=== PATIENT | female | born 1975 | race Caucasian/White ===

== ENCOUNTER 2022-05-18 12:21 | Observation (INO) ==
[~2022-05-18 12:21] MED LIST: DECADRON INJ ONE; KETAMINE HCL ONE; NAROPIN 0.75% EPI ONE; PRECEDEX INJ VIAL IVP ONE; VERSED ONE
[2022-05-18] MEDS ORDERED: NS 100 ML IV 100 ML ONE (12:33)
[2022-05-18] MEDS ORDERED: NS 1,000 ML IV 1,000 ML ONE ×4 (12:33→18:01)
[2022-05-18] MEDS ORDERED: BYFAVO INJ IVP ONE (12:35)
[2022-05-18] MEDS ORDERED: DUONEB 0.5 MG/3 MG (3 mL) NEB ONE (12:43)
[2022-05-18 12:55] VITALS: BMI 33.2
[2022-05-18] MEDS ORDERED: ANCEF VIAL 1 GRAM ONE (13:15)
[2022-05-18] MEDS ORDERED: MARCAINE 0.5% ONE (13:25)
[2022-05-18] MEDS ORDERED: ROBINUL ONE (13:25)
[2022-05-18] MEDS ORDERED: PEPCID 20 MG VIAL ONE (13:25)
[2022-05-18] MEDS ORDERED: NAROPIN 0.75% EPI ONE (13:25)
[2022-05-18] MEDS ORDERED: DIPRIVAN VIAL 20 ML ONE (13:25)
[2022-05-18] MEDS ORDERED: ZOFRAN INJ 4 MG VIAL ONE ×2 (13:25→16:45)
[2022-05-18] MEDS ORDERED: MAGNESIUM SULFATE 50% INJ VIAL ONE (13:26)
[2022-05-18] MEDS ORDERED: KETAMINE 50 MG/5 ML-NACL SYRNG ONE (13:26)
[2022-05-18] MEDS ORDERED: OFIRMEV IV 1000 MG VIAL 1,000 MG/100 ML VIAL IV ONE (13:26)
[2022-05-18] MEDS ORDERED: DILAUDID INJ IVP PRN (13:46)
[2022-05-18] MEDS ORDERED: BENADRYL INJ 50 MG VIAL IVP PRN (13:46)
[2022-05-18] MEDS ORDERED: ZOFRAN INJ 4 MG VIAL IVP PRN (13:46)
[2022-05-18] MEDS ORDERED: REGLAN INJ 10 MG VIAL IVP PRN (13:46)
[2022-05-18] MEDS ORDERED: BARHEMSYS INJ IVP PRN (13:46)
[2022-05-18] MEDS ORDERED: ULTANE GAS IN ONE (14:51)
[2022-05-18] MEDS ORDERED: BETADINE SOLN ONE (15:05)
[2022-05-18] MEDS ORDERED: TOBRAMYCIN SULFATE ONE (15:23)
[2022-05-18] MEDS ORDERED: VANCOMYCIN HCL ONE (15:23)
[2022-05-18] MEDS ORDERED: TORADOL 30 MG VIAL ONE (16:47)
[2022-05-18] MEDS ORDERED: TYLENOL 325 MG TAB PO PRN (18:14)
[2022-05-18] MEDS ORDERED: NovoLIN R (or HumuLIN R) SC PRN (18:17)
[2022-05-18] MEDS ORDERED: NORCO 10/325 TAB PO PRN (18:17)
--- NOTE | 2022-05-18 18:19 | EKG ---
Test Reason : HYPOTENSION Blood Pressure : */* mmHG Vent. Rate : 84 BPM Atrial Rate : 84 BPM P-R Int : 130 ms QRS Dur : 76 ms QT Int : 424 ms P-R-T Axes : 57 63 42 degrees QTc Int : 501 ms Normal sinus rhythm Low voltage QRS Prolonged QT Abnormal ECG When compared with ECG of 20-MAR-2022 08:58, premature ventricular complexes are no longer present Criteria for Anterior infarct are no longer present T wave inversion no longer evident in Inferior leads T wave inversion no longer evident in Anterior leads QT has lengthened Confirmed by Chaka Garcia ([id number]) on 05/19/2022 3:53:41 PM Referred By: Confirmed By: Chaka Garcia
[2022-05-18 18:25] LABS: HEMATOCRIT 33.5 % (36.0-47.0)
[2022-05-18] MEDS ORDERED: PriLOSEC PO SCH (19:00)
[2022-05-18] MEDS ORDERED: SNACK - Diabetic Appropriate PO SCH (20:00)
[2022-05-18] MEDS: GLUCOPHAGE PO SCH (20:24)
[2022-05-18] MEDS ORDERED: COLACE CAP 100 MG PO SCH (21:00)
[2022-05-18] MEDS ORDERED: LIPITOR TAB 10 MG PO SCH (21:00)
[2022-05-18] MEDS ORDERED: NEURONTIN CAP 300 MG PO SCH (21:00)
[2022-05-18] MEDS: BENTYL CAP 10 MG PO SCH (21:13)
[2022-05-18] MEDS: CLEOCIN 300 MG IV PREMIX 300 MG/50 ML BAG IV SCH (21:13)
[2022-05-19 05:17] LABS: BLOOD UREA NITROGEN 8 mg/dL (7-18); CALCIUM 7.9 mg/dL (8.5-10.1); CARBON DIOXIDE 21.8 mmol/L (21-32); CHLORIDE 106 mmol/L (98-107); COR NA(FOR HYPERGLY) 138 mmol/L (136-145); CREATININE 0.64 mg/dL (0.55-1.02); SODIUM 137 mmol/L (136-145); eGFR NON BLACK RACES > 60 (>60)
[2022-05-19] MEDS: CLEOCIN 300 MG IV PREMIX 300 MG/50 ML BAG IV SCH (05:18)
[2022-05-19] MEDS: BENTYL CAP 10 MG PO SCH (05:18)
--- NOTE | 2022-05-19 08:01 | NOTE.SOAP ---
Soap Note Note for Day of Date of Exam: 05/19/22 Subjective Data Subjective Data: pt seen bedside resting comfortably. block still working. unable to move toes or feel them. BP stable and has not had signifincant hypotension through night. pain currently controlled with block Objective Data Objective Data: dressing CDI on ankle, no strikethrough, did not take it down. no motor or sensory to toes. no calf pain. Assessment Assessment: 46 F POD #1 from hindfoot fusion admitted for hypotension. Plan Plan: D/C to home today. rx for norco on chart ASA for DVT prophylaxis at home and lovenox in hospital. dressing to stay on and will change in office next week. she will remain NWB and doesn't need any appliances at home. discussed findings intra op with patient. bedside this am. discussed continued smoking cessation and ramifications of this on healing and her high risk for limb loss. she will follow up with me in [place] next week. D/c later this am once block has worn off and if ok with medicine.
[2022-05-19] MEDS ORDERED: PROTONIX TAB 40 MG PO SCH (09:00)
[2022-05-19] MEDS ORDERED: DIABETA PO SCH (09:00)
[2022-05-19] MEDS ORDERED: LOVENOX INJ 40 MG SYR SC SCH (09:00)
[2022-05-19] MEDS ORDERED: ASPIRIN PO SCH (09:00)
[2022-05-19] MEDS ORDERED: LOVASTATIN 10 MG PO SCH (09:00)
[2022-05-19] MEDS ORDERED: ZOFRAN TAB 4 MG PO PRN (09:22)
[2022-05-19] MEDS ORDERED: ZOFRAN TAB 4 MG ONE (09:28)
[2022-05-19] MEDS: GLUCOPHAGE PO SCH (09:32)
--- NOTE | 2022-05-19 09:45 | DR.SSS ---
SHORT STAY SUMMARY Admission Date Date of Admission: 05/18/22 Discharge Date Discharge Date: 05/19/22 Admission Diagnoses Admission Diagnoses: Hypotension Discharge Diagnoses Discharge Diagnoses: Hypotension Chief Complaint Chief Complaint: Hypotension History of Present Illness History of Present Illness: Pt is a 46 year old female admitted for hypotension after s/p hindfoot fusion for continued observation. Pt received IVF and blood pressure stabilized. She is stable for discharge and has rx and discharge instructions provided by podiatry. Pt to follow up with podiatry and pcp in 1 week. Past Medical History Past Medical History: Anxiety, Depression, Diabetes and GERD Past Surgical History Surgical History: Appendectomy, Cholecystectomy, Hysterectomy and Joint Replacement Allergies Allergies Allergy/AdvReac Type Severity Reaction Status Date / Time mushroom Allergy Unknown Verified 05/18/22 12:44 zinc oxide Allergy Unknown Verified 05/18/22 12:44 amoxicillin [From Augmentin] AdvReac Intermediate RASH Verified 05/18/22 12:44 clavulanic acid AdvReac Intermediate RASH Verified 05/18/22 12:44 [From Augmentin] acetaminophen [From Vicodin] AdvReac Mild RASH Verified 05/18/22 12:44 hydrocodone [From Vicodin] AdvReac Mild RASH Verified 05/18/22 12:44 sucralfate [From Carafate] AdvReac Mild RASH Verified 05/18/22 12:44 Medications Home Medications: mushroom Allergy (Unknown, Verified 05/18/22 12:44) zinc oxide Allergy (Unknown, Verified 05/18/22 12:44) amoxicillin [From Augmentin] Adverse Reaction (Intermediate, Verified 05/18/22 12:44) RASH clavulanic acid [From Augmentin] Adverse Reaction (Intermediate, Verified 05/18/22 12:44) RASH acetaminophen [From Vicodin] Adverse Reaction (Mild, Verified 05/18/22 12:44) RASH hydrocodone [From Vicodin] Adverse Reaction (Mild, Verified 05/18/22 12:44) RASH sucralfate [From Carafate] Adverse Reaction (Mild, Verified 05/18/22 12:44) RASH Family History Family Medical History: Diabetes Mellitus, Cancer, Coronary Artery Disease and Hypertension Social History Does patient currently use any type of tobacco product: Yes Have you used tobacco products in the last 12 months: Yes Type of Tobacco Use: Cigarettes How many years tobacco product used: 20 Alcohol Use: None Drug Use: None Review of Systems Constitutional: No Symptoms Reported Eyes: No Symptoms Reported ENT: No Symptoms Reported Respiratory: No Symptoms Reported Cardiovascular: No Symptoms Reported Gastrointestinal: No Symptoms Reported Genitourinary: No Symptoms Reported Musculoskeletal: Foot Pain Skin: No Symptoms Reported Neurological: No Symptoms Reported Physical Exam Vital Signs: Last Vital Signs Temp 98.4 F 05/19/22 04:00 Pulse 83 05/19/22 09:00 Resp 27 H 05/19/22 09:00 BP 97/52 05/19/22 09:00 Pulse Ox 97 05/19/22 09:00 O2 Del Method Nasal Cannula 05/19/22 07:00 O2 Flow Rate 2 05/19/22 07:00 FiO2 28 01/13/22 08:15 Oriented: Normal Eyes: Normal Nose: Normal Throat: Normal Respiratory: Clear Throughout Cardiovascular: Normal : Normal Auscultation: Bowel Sounds: Normal Palpation: Normal Tenderness: Normal Skin: Normal Musculoskeletal: Foot Psychiatric: Normal Mood Description: Calm Speech Pattern: Clear Labs Labs: Laboratory Last Values Hgb 11.0 g/dL (12.0-16.0) L D 05/18/22 18:15 Hct 33.5 % (36.0-47.0) L 05/18/22 18:15 Sodium 137 mmol/L (136-145) 05/19/22 04:12 Corrected Sodium 138 mmol/L (136-145) 05/19/22 04:12 Potassium 4.2 mmol/L (3.5-5.1) 05/19/22 04:12 Chloride 106 mmol/L (98-107) 05/19/22 04:12 Carbon Dioxide 21.8 mmol/L (21-32) 05/19/22 04:12 BUN 8 mg/dL (7-18) 05/19/22 04:12 Creatinine 0.64 mg/dL (0.55-1.02) 05/19/22 04:12 Est GFR (MDRD) Af Amer > 60 (>60) 05/19/22 04:12 Est GFR (MDRD) Non-Af > 60 (>60) 05/19/22 04:12 Glucose 140 mg/dL (65-99) H 05/19/22 04:12 POC Glucose (mg/dL) 158 mg/dL (65-99) H 05/19/22 05:22 Calcium 7.9 mg/dL (8.5-10.1) L 05/19/22 04:12 Assessment/Plan (1) Hypotension: Hospital Course Hospital Course: Pt is a 46 year old female admitted for hypotension after s/p hindfoot fusion for continued observation. Pt received IVF and blood pressure stabilized. She is stable for discharge and has rx and discharge instructions provided by podiatry. Pt to follow up with podiatry and pcp in 1 week. Discharge Medications Discharge Medications: Prescriptions: Discharge Disposition Discharge Disposition: Home Discharge Plan Discharge Plan Patient Disposition: , SELF-CARE Condition: Stable Health Concerns: Post Hospitalization: new medications and changes needed to prevent readmission or further decline. Pt educated and given instructions on all concerns. Plan of Treatment: Continue with present treatment and follow up plan. Pt is to keep follow up appointment as instructed and take medications as ordered. Prescriptions: Continued aspirin 325 mg Tablet 325 mg PO DAILY metformin 850 mg tablet 1 tab PO BID gabapentin 300 mg capsule 1 cap PO QPM fluoxetine 20 mg capsule 1 cap PO HS glyburide 5 mg Tablet 5 mg PO DAILY olanzapine 5 mg Tablet 10 mg PO QHS lovastatin 10 mg Tablet 10 mg PO DAILY dicyclomine 10 mg Capsule 10 mg PO TID omeprazole 40 mg capsule,delayed release(DR/EC) 10 mg PO QDAY Follow ups/Referrals Follow ups/Referrals: [facility],None [Primary Care Provider] - 1 WEEK Instructions Stand Alone Forms: Excuse From Work or School
[2022-05-19 11:14] VITALS: BP 101/64
== END 2022-05-19 11:45 | disposition home or self-care (01) ==
LOC: ICU 12:21 → SURG1 12:21
PROVIDERS: ADMIT Podiatrist; ATTEND Obstetrics & Gynecology Obstetrics
DX: Z87.39 Personal history of other diseases of the musculoskeletal system and connective tissue; R94.31 Abnormal electrocardiogram [ECG] [EKG]; X58.XXXA Exposure to other specified factors, initial encounter; T81.49XA Infection following a procedure, other surgical site, initial encounter; E11.65 Type 2 diabetes mellitus with hyperglycemia; Z01.812 Encounter for preprocedural laboratory examination; Z01.818 Encounter for other preprocedural examination; Z01.811 Encounter for preprocedural respiratory examination; Z11.8 Encounter for screening for other infectious and parasitic diseases; I10 Essential (primary) hypertension; M96.0 Pseudarthrosis after fusion or arthrodesis; T84.84XA Pain due to internal orthopedic prosthetic devices, implants and grafts, initial encounter; Z01.810 Encounter for preprocedural cardiovascular examination; I95.89 Other hypotension